=== PATIENT | male | born 1970 | race Caucasian/White ===

== ENCOUNTER 2022-05-14 20:13 | Emergency (ER) | payer MEDICAID ==
[~2022-05-14] VITALS: Ht 167.6 cm; Wt 90.7 kg
[~2022-05-14 20:13] MED LIST: ACET-10509 PO; ASPI-1822 PO; ATOR40TA PO; BUME1TAB92 PO; DOCU-299 PO; EMPA25TA PO; GABA400C PO; LORA10TA19 PO; METF-346 PO; METO50TE2 PO; NIRM1TAB5 PO; OMEP20EC11 PO; POTA10TA70 PO; RITO100T PO; ROB PO; SACU1TAB PO; SENN-74 PO; SPIR50TA PO; TAMS0.4C96 PO
[2022-05-14 20:16] VITALS: BP 98/62
--- NOTE | 2022-05-14 20:22 | NUR ---
LUIS ALS TO BED #8
[2022-05-14 20:28] VITALS: BP 98/62
--- NOTE | 2022-05-14 20:29 | NUR ---
PT BIBA FROM HOME COMPLAIN OF ABD PAIN, N AND V, CHEST PAIN, NON RADIATING. HX. CHOLESTEROL, DM PACEMAKER AND HTN, HYPEERLEPDIMA ND CHF
[2022-05-14 20:56] LABS: BASOPHILS # (AUTO) 0.1 K/uL (0.00-0.22); BASOPHILS % (AUTO) 0.8 % (0.0-2.0); EOSINOPHILS # (AUTO) 0.1 K/uL (0-0.4); EOSINOPHILS % (AUTO) 1.1 % (0.0-4.0); HEMATOCRIT 44.9 % (36-52); HEMOGLOBIN 15.2 g/dL (12.0-18.0); LYMPHOCYTES # (AUTO) 0.9 K/uL (2.0-11.5); LYMPHOCYTES % (AUTO) 12.4 % (20.5-51.1); MEAN CORPUSCULAR HEMOGLOBIN 31 pg (27-31); MEAN CORPUSCULAR HGB CONC 34 g/dL (33-37); MEAN CORPUSCULAR VOLUME 90.9 fL (80-94); MONOCYTES # (AUTO) 0.8 K/uL (0.8-1.0); MONOCYTES % (AUTO) 10.7 % (1.7-9.3); NEUTROPHILS # (AUTO) 5.3 K/uL (1.8-7.7); PLATELET COUNT (AUTO) 166 K/uL (140-450); RED BLOOD CELL COUNT(AUTO) 4.94 MIL/uL (4.20-6.10); RED CELL DISTRIBUTION WIDTH 17.2 % (11.6-13.7); WHITE BLOOD COUNT (AUTO) 7.1 K/uL (4.8-10.8)
[2022-05-14 21:13] LABS: ANION GAP 14.5 (8-16); CARBON DIOXIDE 25.4 mmol/L (21-32); POTASSIUM 3.9 mmol/L (3.5-5.1); TOTAL BILIRUBIN 1.2 mg/dL (0.0-1.0)
[2022-05-14] MEDS ORDERED: ONDANSETRON 4 MG/2 ML VIAL IVP ONE (21:15)
[2022-05-14] MEDS ORDERED: MORPHINE SULFATE 4 MG/ML SYR IVP ONE (21:15)
[2022-05-15] MEDS ORDERED: MIRABULK PO
[2022-05-15] MEDS ORDERED: ONDA-188 SL
[2022-05-15] MEDS ORDERED: BUME2TAB PO
== END 2022-05-15 00:10 | disposition home or self-care (01) ==
LOC: MED 20:13
DX: R10.9 Unspecified abdominal pain (principal); I11.0 Hypertensive heart disease with heart failure; I50.9 Heart failure, unspecified; E87.1 Hypo-osmolality and hyponatremia; E11.9 Type 2 diabetes mellitus without complications; I25.10 Atherosclerotic heart disease of native coronary artery without angina pectoris; E78.5 Hyperlipidemia, unspecified; Z95.0 Presence of cardiac pacemaker; Z86.73 Personal history of transient ischemic attack (TIA), and cerebral infarction without residual deficits; Z79.899 Other long term (current) drug therapy; Z79.82 Long term (current) use of aspirin; Z79.01 Long term (current) use of anticoagulants
CPT/HCPCS: 36415; 71045; 74018; 74177; 80053; 83690; 85025; 96374; 96375; 99285; J2270; J2405; Q0092; Q9967